=== PATIENT | female | born 1985 | race Caucasian/White ===

== ENCOUNTER 2024-06-22 23:04 | Emergency (ER) | payer OTHER, SELFPAY ==
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
--- NOTE | ~2024-06-22 | XR_ITS ---
XR hand LT min 3V, XR wrist LT min 3V 06/23/2024 03:59 Indication: Left hand and wrist pain Procedure: 3 views left hand and 3 views left wrist Comparison: No prior studies for comparison. Findings: Mild polyarticular osteoarthritis. No fracture, subluxation or dislocation. No significant soft tissue abnormality. No foreign bodies. Impression: 1: No acute bone or joint abnormality. Reviewed, dictated and finalized at location B. Impression: 1: No acute bone or joint abnormality. Impression: 1: No acute bone or joint abnormality.
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
[2024-06-22 23:14] VITALS: BP 121/93; PULSE 90; RESP 20; TEMP 36.7; O2SAT 100
[2024-06-23 03:11] VITALS: BP 117/84; PULSE 74; RESP 13; TEMP 36.6; O2SAT 100
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
[2024-06-23] MEDS: HYDROcodone/acetaminophen (*CRX) 5-325 MG TABLET 1 TAB PO (04:19)
[2024-06-23 05:06] VITALS: BP 112/73; PULSE 66; RESP 16; TEMP 36.9; O2SAT 98
[2024-06-23 07:14] VITALS: BP 117/92; PULSE 67; RESP 14; TEMP 36.6; O2SAT 99
== END 2024-06-23 07:15 | disposition home or self-care (01) ==
PROVIDERS: Emergency Provider Student in an Organized Health Care Education/Training Program
DX: S60.222A Contusion of left hand, initial encounter (principal); S50.02XA Contusion of left elbow, initial encounter; V49.00XA Driver injured in collision with unspecified motor vehicles in nontraffic accident, initial encounter; W22.10XA Striking against or struck by unspecified automobile airbag, initial encounter
CPT/HCPCS: 71250; 73070; 73110; 73130; 73562; 99284; A9270